=== PATIENT | female | born 1970 | race Hispanic/Latino ===

== ENCOUNTER → 2023-11-17 | Day surgery (SDC) | payer OTHER ==
[2023-11-11 12:52] LABS: CALCIUM 8.7 mg/dL (8.4-10.2); CREATININE, SERUM 0.76 mg/dL (0.57-1.11)
[~2023-11-17] MED LIST: FENTANYL CITRATE/PF 100MCG/2 ML INJ ONE; HYDROMORPHONE 1MG/1ML INJ ONE; JARDIANCE25 MG PO; KETOROLAC TROMETHAMINE 30 MG/ML VIAL ONE; LIDOCAINE HCL 2% LOCAL INJ 5 ML SDV VIAL INJ ONE; LIPITOR10 MG PO; METFORMIN HCL500 MG PO; MIDAZOLAM HCL 2 MG/2 ML VIAL ONE; ONDANSETRON HCL INJ 2MG/ML 2ML 2 MG/ML VIAL ONE; PROPOFOL IV EMULSION 10 MG/ML 20 ML VIAL ONE; SEVOFLURANE INHAL SOLN 250 ML PEN BTL ONE
[2023-11-17] MEDS: LACTATED RINGER'S 1,000 ML ONE (06:12)
[2023-11-17 07:49] VITALS: TEMP 98
[2023-11-17 09:00] VITALS: BP 146/89; PULSE 63; RESP 18; O2SAT 99
== END | disposition home or self-care (01) ==
LOC: OR 06:06
PROVIDERS: ATTEND Specialist
DX: S83.241A Other tear of medial meniscus, current injury, right knee, initial encounter (principal); S83.281A Other tear of lateral meniscus, current injury, right knee, initial encounter; M67.51 Plica syndrome, right knee; M94.261 Chondromalacia, right knee; E11.9 Type 2 diabetes mellitus without complications; X58.XXXA Exposure to other specified factors, initial encounter; Z01.810 Encounter for preprocedural cardiovascular examination; Z01.812 Encounter for preprocedural laboratory examination; Z79.899 Other long term (current) drug therapy; Z79.84 Long term (current) use of oral hypoglycemic drugs
CPT/HCPCS: 36415; 80048; 81025; 93005; J0690; J1170; J1885; J2001; J2250; J2405